=== PATIENT | female | born 1990 | race Two or more races ===

== ENCOUNTER 2016-11-08 18:30 | Outpatient (CLI) | payer MEDICAID ==
--- NOTE | 2016-11-08 19:10 | Non Stress Test Report ---
Non Stress Test Datetime Report Generated by CPN: 11/08/2016 19:10 DEMOGRAPHIC EGA NST: 36.2 INDICATION Indication for Study: Ordered by Provider Indication for Study (NST) Other: repeat from the office MONITORING Monitor Explained: Monitor Explained; Test Explained; Patient Verbalized Understanding Time on Monitor: 11/08/2016 18:48 Time off Monitor: 11/08/2016 19:08 NST Duration: 20 NST INTERVENTIONS NST Interventions: PO Hydration; Reposition Patient Physician Notified NST: A. Emmel, CNM BABY A: [id number] BABY A Movement : Present Contraction Frequency : none FHR Baseline : 145 Accelerations : 15X15 Decelerations : None Variability : Moderate 6-25bpm NST Review: Meets Criteria for Reactive NST NST Results: Reactive NST REPORT Report Trigger: Send Report
--- NOTE | 2016-11-08 21:12 | L&D Discharge Summary ---
OB Discharge Summary Datetime Report Generated by CPN: 11/08/2016 21:12 DISCHARGE DIAGNOSIS Diagnosis/Symptoms: Reassuring Surveillance - Annotate Details Diagnoses/Symptoms Other: IUP at 36.2, reactive NST Number of Babies in Womb: 1 Parity: 4 DIET/ACTIVITY/RESTRICTIONS Diet: Regular Activity: Normal Activity TEACHING/INSTRUCTIONS/REFERRALS Instructions Given To: patient and FOB Instructions Understood: Patient Verbalized Understanding; Support Person Verbalized Understanding Referrals: None Educational Materials- Other: kick counts DISCHARGE INFORMATION Discharged AMA: No Discharge Date/Time: 11/08/2016 19:11 Discharged To: Home Discharge Provider Name: FerdinandKatie DaphneMAHENDRA zuluaga Accompanied By: FOB Discharge Method: Ambulatory Condition: Stable FOLLOW UP INFORMATION Follow Up With: [facility] Follow Up On: As Scheduled Follow Up Phone Number: [facility] -
--- NOTE | 2016-11-08 22:50 | L&D Flow Sheet ---
LD Flowsheet Datetime Report Generated by CPN: 11/08/2016 22:45 Datetime: 11/08/2016 19:09 Communication Communication Comments: monitors removed for patient discharge (Radha Khanh, RN) Datetime: 11/08/2016 19:08 Communication Communication Comments: order received from A. Emmel, CNM to discharge patient once heart rate reactive (Radha Khanh, RN) Datetime: 11/08/2016 19:07 NBP Sys/[place]/Mean (mmHg): 96 (QS system process) : 61 (QS system process) : 75 (QS system process) Pulse: 93 (QS system process) LaborFlag: OB Triage (QS system process) Datetime: 11/08/2016 19:00 Uterine Activity Monitor Mode: External; Palpation (Radha Khanh, RN) Frequency (min): none (Radha Khanh, RN) Resting Tone (Palpate): Relaxed (Radha Khanh, RN) Assessment A Monitor Mode: External US (Radha Khanh, RN) FHR Baseline Rate : 145 (Radha Khanh, RN) FHR Baseline Changes: No Baseline Change (Radha Khanh, RN) Variability: Moderate 6-25 bpm (Radha Khanh, RN) Accelerations: 15X15 (Radha Khanh, RN) Decelerations: None (Radha Khanh, RN) Datetime: 11/08/2016 18:53 NBP Sys/[place]/Mean (mmHg): 99 (QS system process) : 59 (QS system process) : 74 (QS system process) Pulse: 106 (QS system process) LaborFlag: OB Triage (QS system process) Datetime: 11/08/2016 18:49 Patient Care Patient Position/Activity: Left Tilt; Low Fowlers (Radha Khanh, RN) Datetime: 11/08/2016 18:46 Communication Communication Comments: patient sent from office for repeat NST (Radha Khanh, RN) Datetime: 11/08/2016 16:45 Vital Signs Stage of : OB Triage (Radha Khanh, RN)
--- NOTE | 2016-11-08 22:50 | L&D Discharge Summary ---
OB Discharge Summary Datetime Report Generated by CPN: 11/08/2016 22:45 DISCHARGE DIAGNOSIS Diagnosis/Symptoms: Reassuring Surveillance - Annotate Details Diagnoses/Symptoms Other: IUP at 36.2, reactive NST Gestation: 36.2 Number of Babies in Womb: 1 Parity: 4 DIET/ACTIVITY/RESTRICTIONS Diet: Regular Activity: Normal Activity TEACHING/INSTRUCTIONS/REFERRALS Instructions Given To: patient and FOB Instructions Understood: Patient Verbalized Understanding; Support Person Verbalized Understanding Referrals: None Educational Materials- Other: kick counts DISCHARGE INFORMATION Discharged AMA: No Discharge Date/Time: 11/08/2016 19:11 Discharged To: Home Discharge Provider Name: Antony Glasgow CNM Accompanied By: FOB Discharge Method: Ambulatory Condition: Stable FOLLOW UP INFORMATION Follow Up With: [facility] Follow Up On: As Scheduled Follow Up Phone Number: [facility] -
--- NOTE | 2016-11-08 22:50 | Antepartum Discharge Summary ---
Antepartum DC Datetime Report Generated by CPN: 11/08/2016 22:45 DIET/ACTIVITY/RESTRICTIONS Diet: Regular (11/08/2016 19:03:Radha Cassidy RN) Activity: Normal Activity (11/08/2016 19:03:Radha Cassidy RN) TEACHING/INSTRUCTIONS/REFERRALS Instructions Given To: patient and FOB (11/08/2016 19:03:Radha Cassidy RN) Instructions Understood: Patient Verbalized Understanding; Support Person Verbalized Understanding (11/08/2016 19:03:Radha Cassidy RN) Referrals: None (11/08/2016 19:03:Radha Cassidy RN) Educational Materials- Other: kick counts (11/08/2016 19:03:Radha Cassidy RN) DISCHARGE INFORMATION Discharged AMA: No (11/08/2016 19:03:Radha Cassidy RN) Discharge Date/Time: 11/08/2016 19:11 (11/08/2016 19:03:Radha Cassidy RN) Discharged To: Home (11/08/2016 19:03:Radha Cassidy RN) Discharge Provider Name: Antony Glasgow CNM (11/08/2016 19:03:Radha Cassidy RN) Accompanied By: FOB (11/08/2016 19:03:Radha Cassidy RN) Discharge Method: Ambulatory (11/08/2016 19:03:Radha Cassidy RN) Condition: Stable (11/08/2016 19:03:Radha Cassidy RN) FOLLOW UP INFORMATION Follow Up With: [facility] (11/08/2016 19:03:Radha Cassidy RN) Follow Up On: As Scheduled (11/08/2016 19:03:Radha Cassidy RN) Follow Up Phone Number: [facility] - (11/08/2016 19:03:Radha Cassidy RN)
--- NOTE | 2016-11-08 22:50 | L&D General Admission ---
General Admit Datetime Report Generated by CPN: 11/08/2016 22:45 INFORMATION Patient Age: 26 (11/08/2016 18:31:QS system process) EDC: 12/04/2016 00:00 (11/08/2016 18:36:Sarah Bellavance, RNC) : 5 (11/08/2016 18:36:Sarah Bellavance, RNC) Para: 4 (11/08/2016 18:36:Sarah Bellavance, RNC) Term: 4 (11/08/2016 18:36:Sarah Bellavance, RNC) : 0 (11/08/2016 18:36:Sarah Bellavance, RNC) Spontaneous Abortions: 0 (11/08/2016 18:36:Sarah Bellavance, RNC) Induced Abortions: 0 (11/08/2016 18:36:Sarah Bellavance, RNC) Livin (11/08/2016 18:36:Sarah Bellavance, RNC) Cesareans: 0 (11/08/2016 18:36:Sarah Bellavance, RNC) VBACs: 0 (11/08/2016 18:36:Sarah Bellavance, RNC) Ectopic: 0 (11/08/2016 18:36:Sarah Bellavance, RNC) Multiple Births: 0 (11/08/2016 18:36:Sarah Bellavance, RNC) Baby, Number in Womb: 1 (11/08/2016 18:36:Sarah Bellavance, RNC) CARE Primary Ground Water Pump Installer: [facility] (11/08/2016 18:36:Sarah Bellavance, RNC) Height (in): 64 (11/08/2016 18:59:QS system process) ALLERGIES Medication Allergies: No Known Allergies (11/08/2016) (11/08/2016 18:59:QS system process) Medication Allergies: No Known Allergies (02/04/2011) (11/08/2016 18:31:QS system process) DEMOGRAPHICS Address: [address] [place] [address] [address], [address] [place] [address] (11/08/2016 18:31:QS system process) Zipcode: [address] (11/08/2016 18:31:QS system process) Home (11/08/2016 18:31:QS system process) Work (11/08/2016 18:31:QS system process) SSN: [id number] (11/08/2016 18:31:QS system process) Next of Kin Name: JESSICA PERALTA (11/08/2016 18:31:QS system process) Next of Kin (11/08/2016 18:31:QS system process) Next of Kin Relationship: OR (11/08/2016 18:31:QS system process) Date of : 1990 (11/08/2016 18:31:QS system process) Marital Status: Single (11/08/2016 18:31:QS system process) Sex: Female (11/08/2016 18:31:QS system process) Race: Other (11/08/2016 18:31:QS system process) Ethnicity: Non- or (11/08/2016 18:31:QS system process) Buddhism: None (11/08/2016 18:31:QS system process)
--- NOTE | 2016-11-09 04:50 | Antepartum Discharge Summary ---
Antepartum DC Datetime Report Generated by CPN: 11/09/2016 04:46 DIET/ACTIVITY/RESTRICTIONS Diet: Regular (11/08/2016 19:03:Radha Cassidy RN) Activity: Normal Activity (11/08/2016 19:03:Radha Cassidy RN) TEACHING/INSTRUCTIONS/REFERRALS Instructions Given To: patient and FOB (11/08/2016 19:03:Radha Cassidy RN) Instructions Understood: Patient Verbalized Understanding; Support Person Verbalized Understanding (11/08/2016 19:03:Radha Cassidy RN) Referrals: None (11/08/2016 19:03:Radha Cassidy RN) Educational Materials- Other: kick counts (11/08/2016 19:03:Radha Cassidy RN) DISCHARGE INFORMATION Discharged AMA: No (11/08/2016 19:03:Radha Cassidy RN) Discharge Date/Time: 11/08/2016 19:11 (11/08/2016 19:03:Radha Cassidy RN) Discharged To: Home (11/08/2016 19:03:Radha Cassidy RN) Discharge Provider Name: Antony Glasgow CNM (11/08/2016 19:03:Radha Cassidy RN) Accompanied By: FOB (11/08/2016 19:03:Radha Cassidy RN) Discharge Method: Ambulatory (11/08/2016 19:03:Radha Cassidy RN) Condition: Stable (11/08/2016 19:03:Radha Cassidy RN) FOLLOW UP INFORMATION Follow Up With: [facility] (11/08/2016 19:03:Radha Cassidy RN) Follow Up On: As Scheduled (11/08/2016 19:03:Radha Cassidy RN) Follow Up Phone Number: [facility] - (11/08/2016 19:03:Radha Cassidy RN)
--- NOTE | 2016-11-09 04:50 | L&D Discharge Summary ---
OB Discharge Summary Datetime Report Generated by CPN: 11/09/2016 04:46 DISCHARGE DIAGNOSIS Diagnosis/Symptoms: Reassuring Surveillance - Annotate Details Diagnoses/Symptoms Other: IUP at 36.2, reactive NST Gestation: 36.2 Number of Babies in Womb: 1 Parity: 4 DIET/ACTIVITY/RESTRICTIONS Diet: Regular Activity: Normal Activity TEACHING/INSTRUCTIONS/REFERRALS Instructions Given To: patient and FOB Instructions Understood: Patient Verbalized Understanding; Support Person Verbalized Understanding Referrals: None Educational Materials- Other: kick counts DISCHARGE INFORMATION Discharged AMA: No Discharge Date/Time: 11/08/2016 19:11 Discharged To: Home Discharge Provider Name: Antony Glasgow CNM Accompanied By: FOB Discharge Method: Ambulatory Condition: Stable FOLLOW UP INFORMATION Follow Up With: [facility] Follow Up On: As Scheduled Follow Up Phone Number: [facility] -
--- NOTE | 2016-11-09 04:50 | L&D General Admission ---
General Admit Datetime Report Generated by CPN: 11/09/2016 04:46 INFORMATION Patient Age: 26 (11/08/2016 18:31:QS system process) EDC: 12/04/2016 00:00 (11/08/2016 18:36:Sarah Bellavance, RNC) : 5 (11/08/2016 18:36:Sarah Bellavance, RNC) Para: 4 (11/08/2016 18:36:Sarah Bellavance, RNC) Term: 4 (11/08/2016 18:36:Sarah Bellavance, RNC) : 0 (11/08/2016 18:36:Sarah Bellavance, RNC) Spontaneous Abortions: 0 (11/08/2016 18:36:Sarah Bellavance, RNC) Induced Abortions: 0 (11/08/2016 18:36:Sarah Bellavance, RNC) Livin (11/08/2016 18:36:Sarah Bellavance, RNC) Cesareans: 0 (11/08/2016 18:36:Sarah Bellavance, RNC) VBACs: 0 (11/08/2016 18:36:Sarah Bellavance, RNC) Ectopic: 0 (11/08/2016 18:36:Sarah Bellavance, RNC) Multiple Births: 0 (11/08/2016 18:36:Sarah Bellavance, RNC) Baby, Number in Womb: 1 (11/08/2016 18:36:Sarah Bellavance, RNC) CARE Primary Traffic Engineering Director: [facility] (11/08/2016 18:36:Sarah Bellavance, RNC) Height (in): 64 (11/08/2016 18:59:QS system process) ALLERGIES Medication Allergies: No Known Allergies (11/08/2016) (11/08/2016 18:59:QS system process) Medication Allergies: No Known Allergies (02/04/2011) (11/08/2016 18:31:QS system process) DEMOGRAPHICS Address: [address] [place] [address] [address], [address] [place] [address] (11/08/2016 18:31:QS system process) Zipcode: [address] (11/08/2016 18:31:QS system process) Home (11/08/2016 18:31:QS system process) Work (11/08/2016 18:31:QS system process) SSN: [id number] (11/08/2016 18:31:QS system process) Next of Kin Name: JESSICA PERALTA (11/08/2016 18:31:QS system process) Next of Kin (11/08/2016 18:31:QS system process) Next of Kin Relationship: OR (11/08/2016 18:31:QS system process) Date of : 1990 (11/08/2016 18:31:QS system process) Marital Status: Single (11/08/2016 18:31:QS system process) Sex: Female (11/08/2016 18:31:QS system process) Race: Other (11/08/2016 18:31:QS system process) Ethnicity: Non- or (11/08/2016 18:31:QS system process) Cheondoism: None (11/08/2016 18:31:QS system process)
--- NOTE | 2016-11-09 04:50 | L&D Admission Assessment ---
LD ADM ASMT Datetime Report Generated by CPN: 11/09/2016 04:46 WEIGHT Weight (lb): 139 (11/08/2016 18:59:QS system process) Weight (kg): 63.2 (11/08/2016 18:59:QS system process) CONTRACTIONS Frequency (min): none (11/08/2016 19:00:Radha Cassidy RN) Resting Tone [place] Number Two: Relaxed (11/08/2016 19:00:Radha Cassidy RN) BABY A FHR Baseline Rate (bpm) Baby A: 145 (11/08/2016 19:00:Radha Cassidy RN) Variability Baby A: Moderate 6-25 bpm (11/08/2016 19:00:Radha Cassidy RN) Accelerations Baby A: 15X15 (11/08/2016 19:00:Radha Cassidy RN) Decelerations Baby A: None (11/08/2016 19:00:Radha Cassidy RN)
--- NOTE | 2016-11-09 10:50 | L&D Admission Assessment ---
LD ADM ASMT Datetime Report Generated by CPN: 11/09/2016 10:45 WEIGHT Weight (lb): 139 (11/08/2016 18:59:QS system process) Weight (kg): 63.2 (11/08/2016 18:59:QS system process) CONTRACTIONS Frequency (min): none (11/08/2016 19:00:Radha Cassidy RN) Resting Tone [place]: Relaxed (11/08/2016 19:00:Radha Cassidy RN) BABY A FHR Baseline Rate (bpm) Baby A: 145 (11/08/2016 19:00:Radha Cassidy RN) Variability Baby A: Moderate 6-25 bpm (11/08/2016 19:00:Radha Cassidy RN) Accelerations Baby A: 15X15 (11/08/2016 19:00:Radha Cassidy RN) Decelerations Baby A: None (11/08/2016 19:00:Radha Cassidy RN)
--- NOTE | 2016-11-09 10:50 | L&D Discharge Summary ---
OB Discharge Summary Datetime Report Generated by CPN: 11/09/2016 10:45 DISCHARGE DIAGNOSIS Diagnosis/Symptoms: Reassuring Surveillance - Annotate Details Diagnoses/Symptoms Other: IUP at 36.2, reactive NST Gestation: 36.2 Number of Babies in Womb: 1 Parity: 4 DIET/ACTIVITY/RESTRICTIONS Diet: Regular Activity: Normal Activity TEACHING/INSTRUCTIONS/REFERRALS Instructions Given To: patient and FOB Instructions Understood: Patient Verbalized Understanding; Support Person Verbalized Understanding Referrals: None Educational Materials- Other: kick counts DISCHARGE INFORMATION Discharged AMA: No Discharge Date/Time: 11/08/2016 19:11 Discharged To: Home Discharge Provider Name: Antony Glasgow CNM Accompanied By: FOB Discharge Method: Ambulatory Condition: Stable FOLLOW UP INFORMATION Follow Up With: [facility] Follow Up On: As Scheduled Follow Up Phone Number: [facility] -
--- NOTE | 2016-11-09 10:50 | L&D General Admission ---
General Admit Datetime Report Generated by CPN: 11/09/2016 10:45 INFORMATION Patient Age: 26 (11/08/2016 18:31:QS system process) EDC: 12/04/2016 00:00 (11/08/2016 18:36:Sarah Bellavance, RNC) : 5 (11/08/2016 18:36:Sarah Bellavance, RNC) Para: 4 (11/08/2016 18:36:Sarah Bellavance, RNC) Term: 4 (11/08/2016 18:36:Sarah Bellavance, RNC) : 0 (11/08/2016 18:36:Sarah Bellavance, RNC) Spontaneous Abortions: 0 (11/08/2016 18:36:Sarah Bellavance, RNC) Induced Abortions: 0 (11/08/2016 18:36:Sarah Bellavance, RNC) Livin (11/08/2016 18:36:Sarah Bellavance, RNC) Cesareans: 0 (11/08/2016 18:36:Sarah Bellavance, RNC) VBACs: 0 (11/08/2016 18:36:Sarah Bellavance, RNC) Ectopic: 0 (11/08/2016 18:36:Sarah Bellavance, RNC) Multiple Births: 0 (11/08/2016 18:36:Sarah Bellavance, RNC) Baby, Number in Womb: 1 (11/08/2016 18:36:Sarah Bellavance, RNC) CARE Primary Clinical Research Nurse Coordinator: [facility] (11/08/2016 18:36:Sarah Bellavance, RNC) Height (in): 64 (11/08/2016 18:59:QS system process) ALLERGIES Medication Allergies: No Known Allergies (11/08/2016) (11/08/2016 18:59:QS system process) Medication Allergies: No Known Allergies (02/04/2011) (11/08/2016 18:31:QS system process) DEMOGRAPHICS Address: [address] [place] [address] [address], [address] [place] [address] (11/08/2016 18:31:QS system process) Zipcode: [address] (11/08/2016 18:31:QS system process) Home (11/08/2016 18:31:QS system process) Work (11/08/2016 18:31:QS system process) SSN: [id number] (11/08/2016 18:31:QS system process) Next of Kin Name: JESSICA PERALTA (11/08/2016 18:31:QS system process) Next of Kin (11/08/2016 18:31:QS system process) Next of Kin Relationship: OR (11/08/2016 18:31:QS system process) Date of : 1990 (11/08/2016 18:31:QS system process) Marital Status: Single (11/08/2016 18:31:QS system process) Sex: Female (11/08/2016 18:31:QS system process) Race: Other (11/08/2016 18:31:QS system process) Ethnicity: Non- or (11/08/2016 18:31:QS system process) Restorationist: None (11/08/2016 18:31:QS system process)
--- NOTE | 2016-11-09 10:50 | Antepartum Discharge Summary ---
Antepartum DC Datetime Report Generated by CPN: 11/09/2016 10:45 DIET/ACTIVITY/RESTRICTIONS Diet: Regular (11/08/2016 19:03:Radha Cassidy RN) Activity: Normal Activity (11/08/2016 19:03:Radha Cassidy RN) TEACHING/INSTRUCTIONS/REFERRALS Instructions Given To: patient and FOB (11/08/2016 19:03:Radha Cassidy RN) Instructions Understood: Patient Verbalized Understanding; Support Person Verbalized Understanding (11/08/2016 19:03:Radha Cassidy RN) Referrals: None (11/08/2016 19:03:Radha Cassidy RN) Educational Materials- Other: kick counts (11/08/2016 19:03:Radha Cassidy RN) DISCHARGE INFORMATION Discharged AMA: No (11/08/2016 19:03:Radha Cassidy RN) Discharge Date/Time: 11/08/2016 19:11 (11/08/2016 19:03:Radha Cassidy RN) Discharged To: Home (11/08/2016 19:03:Radha Cassidy RN) Discharge Provider Name: Antony Glasgow CNM (11/08/2016 19:03:Radha Cassidy RN) Accompanied By: FOB (11/08/2016 19:03:Radha Cassidy RN) Discharge Method: Ambulatory (11/08/2016 19:03:Radha Cassidy RN) Condition: Stable (11/08/2016 19:03:Radha Cassidy RN) FOLLOW UP INFORMATION Follow Up With: [facility] (11/08/2016 19:03:Radha Cassidy RN) Follow Up On: As Scheduled (11/08/2016 19:03:Radha Cassidy RN) Follow Up Phone Number: [facility] - (11/08/2016 19:03:Radha Cassidy RN)
== END 2016-11-08 19:11 | disposition home or self-care (01) ==
LOC: LC 18:30
PROVIDERS: ATTEND Obstetrics & Gynecology
PROC: 4A1HXCZ Monitoring of Products of Conception, Cardiac Rate, External Approach (ICD-10-PCS; principal; 2016-11-08)
DX: Z34.93 Encounter for supervision of normal pregnancy, unspecified, third trimester (principal); Z36 Encounter for antenatal screening of mother; Z3A.36 36 weeks gestation of pregnancy
CPT/HCPCS: 59025

== ENCOUNTER 2016-12-02 05:28 | Outpatient (CLI) | payer MEDICAID ==
[2016-12-02 05:58] LABS: APPEARANCE,URINE CLEAR; BILIRUBIN,URINE NEGATIVE (NEGATIVE); GLUCOSE, URINE NEGATIVE (NEGATIVE); KETONES,URINE NEGATIVE (NEGATIVE); LEUKOCYTE ESTERASE,URINE NEGATIVE (NEGATIVE); NITRITE,URINE NEGATIVE (NEGATIVE); PROTEIN,URINE NEGATIVE (NEGATIVE); URINE SPECIFIC GRAVITY 1.005; UROBILINOGEN,URINE NEGATIVE mg/dL (<2.0)
[2016-12-02 06:23] LABS: URINE BARBITURATES SCREEN NEGATIVE; URINE METHADONE SCREEN NEGATIVE; URINE OPIATES LOW NEGATIVE; URINE PHENCYCLIDINE SCREEN NEGATIVE
[2016-12-02] MEDS ORDERED: ZOLPIDEM TARTRATE 5 MG TABLET ONE (06:49)
--- NOTE | 2016-12-02 06:51 | Non Stress Test Report ---
Non Stress Test Datetime Report Generated by CPN: 12/02/2016 06:51 DEMOGRAPHIC EGA NST: 39.5 INDICATION Indication for Study: Other Indication for Study (NST) Other: LC URINE RESULTS Urine Protein, NST: Negative Urine Ketones - NST: Negative Urine Glucose - NST: Negative Urine Blood - NST: Negative MONITORING Monitor Explained: Monitor Explained; Test Explained; Patient Verbalized Understanding Time on Monitor: 12/02/2016 05:46 Time off Monitor: 12/02/2016 06:44 NST Duration: 58 NST INTERVENTIONS NST Interventions: PO Hydration Physician Notified NST: Dr. Jorgensen BABY A: [id number] Movement : Present Contraction Frequency : 1.5-5 FHR Baseline : 125 Accelerations : 15X15 Decelerations : None Variability : Moderate 6-25bpm NST Review: Meets Criteria for Reactive NST NST Review and Verified By : Melvina Ram RN NST Results: Reactive NST REPORT Report Trigger: Send Report
[2016-12-02] MEDS ORDERED: ZOLPIDEM TARTRATE 5 MG TABLET PO ONE (07:00)
== END 2016-12-02 06:56 | disposition home or self-care (01) ==
LOC: LC 05:28
PROVIDERS: ATTEND Specialist
DX: O47.1 False labor at or after 37 completed weeks of gestation (principal); Z3A.39 39 weeks gestation of pregnancy
CPT/HCPCS: 59025; 81005; 80307; J3490

== ENCOUNTER 2016-12-07 07:35 | Inpatient (IN) | payer MEDICAID ==
[2016-12-07] MEDS ORDERED: RINGERS SOLUTION,LACTATED 1,000 ML IV PRN (07:42)
[2016-12-07] MEDS ORDERED: OXYTOCIN/NORMAL SALINE 1,000 ML IV PRN ×2 (07:42→16:26)
[2016-12-07] MEDS ORDERED: RINGERS SOLUTION,LACTATED 300 ML IV ONE (07:42)
[2016-12-07 08:20] LABS: ABSOLUTE EOSINOPHILS # (AUTO) 0.1 10^3/uL (0.0-0.6); ABSOLUTE LYMPHOCYTES (AUTO) 3.3 10^3/uL (0.5-4.7); ABSOLUTE MONOCYTES (AUTO) 0.7 10^3/uL (0.1-1.4); ABSOLUTE NEUT (AUTO) 8.2 10^3/uL (1.7-8.2); BASOPHILS % (AUTO) 0.2 % (0-2); EOSINOPHILS % (AUTO) 0.9 % (0-6); HEMOGLOBIN 10.2 g/dL (12.0-15.5); HGB HCT DIFFERENCE -0.4; LYMPHOCYTES % (AUTO) 26.8 % (13-45); MEAN CORPUSCULAR HGB CONC 32.8 g/dL (32.0-36.0); MEAN CORPUSCULAR VOLUME 82 fl (80-97); MONOCYTES % (AUTO) 5.7 % (3-13); RED BLOOD COUNT 3.77 10^6/uL (3.72-5.28); RED CELL DISTRIBUTION WIDTH 14.3 % (11.5-14.0); SEGMENTED NEUTROPHILS % (AUTO) 66.4 % (42-78); WHITE BLOOD COUNT 12.3 10^3/uL (4.0-10.5)
[2016-12-07] MEDS ORDERED: OXYTOCIN/NORMAL SALINE 20 UNIT/1,000 ML RTUINJ ONE (08:30)
[2016-12-07 09:04] LABS: APPEARANCE,URINE SLIGHTLY-CLOUDY; BILIRUBIN,URINE NEGATIVE (NEGATIVE); GLUCOSE, URINE NEGATIVE (NEGATIVE); KETONES,URINE NEGATIVE (NEGATIVE); LEUKOCYTE ESTERASE,URINE NEGATIVE (NEGATIVE); NITRITE,URINE NEGATIVE (NEGATIVE); PROTEIN,URINE NEGATIVE (NEGATIVE); URINE SPECIFIC GRAVITY 1.019; UROBILINOGEN,URINE NEGATIVE mg/dL (<2.0)
[2016-12-07 09:26] LABS: URINE BARBITURATES SCREEN NEGATIVE; URINE METHADONE SCREEN NEGATIVE; URINE OPIATES LOW NEGATIVE; URINE PHENCYCLIDINE SCREEN NEGATIVE
[2016-12-07] MEDS ORDERED: EPHEDRINE SULFATE INJ 50 MG/1 ML AMPULE ONE (12:35)
[2016-12-07] MEDS ORDERED: FENTANYL/BUPIVACAINE/NS/PF 200 MCG/100 ML RTUINJ EPI ONE (12:36)
[2016-12-07] MEDS ORDERED: BUPIVACAINE HCL 0.25 % INJ/PF (2.5 MG/1 ML) 30 ML VIAL ONE (12:36)
[2016-12-07] MEDS ORDERED: MISOPROSTOL 0.2 MG TABLET ONE (14:42)
[2016-12-07] MEDS ORDERED: LIDOCAINE 1% INJ-PF (10 MG/ML) 30 ML SDV ONE (14:43)
[2016-12-07] MEDS ORDERED: METHYLERGONOVINE MALEATE INJ/PF 0.2 MG/1 ML AMPULE ONE (14:43)
[2016-12-07] MEDS ORDERED: OXYTOCIN 10 UNIT/ML VIAL ONE (14:43)
--- NOTE | 2016-12-07 14:43 | L&D Progress Notes ---
PROGRESS NOTES Datetime Report Generated by CPN: 12/07/2016 14:43 PROGRESS NOTE Impression: Normal Progression of Labor Plan: Continue Present Management; Induction Informed Consent Obtained: Vaginal Delivery Informed Consent Obtained: Vaginal Delivery; Induction of Labor; Risks, Benefits and Alternatives Discussed Vital Signs : Reviewed Comment: s/p epidural placement ctxs q3-5 min FHts 120s average variability pitocin at 20mu/ min anticipate FETUS A FHR - Baseline: 130 Monitoring: External US Variability: Moderate 6-25bpm Decelerations: None : 40.3 Presentation: Vertex SIGNATURE SIGNATURE: [id number] SIGNATURE: [id number] SIGNATURE: [id number] Assignment: Keven Greenfield DO Signature: with User ID: [email or web address] : with User ID: [email or web address]
[2016-12-07] MEDS ORDERED: BENZOCAINE/MENTHOL AEROSOL SPRAY 56 ML TOP PRN (16:26)
[2016-12-07] MEDS ORDERED: ZOLPIDEM TARTRATE 5 MG TABLET PO PRN (16:26)
[2016-12-07] MEDS ORDERED: DIPH/PERTUSS(ACELL)/TETANUS VAC/PF 0.5 ML SYR (>=10YO) IM PRN (16:26)
[2016-12-07] MEDS ORDERED: DIBUCAINE 1% OINTMENT 28 GM TP PRN (16:26)
[2016-12-07] MEDS ORDERED: MEASLES,MUMPS&RUBELLA VACC/PF 0.5 ML VIAL SUBCUT PRN (16:26)
--- NOTE | 2016-12-07 17:55 | Admission Physical ---
Datetime Report Generated by CPN: 12/07/2016 17:55 CURRENT ADMISSION Chief Complaint: Scheduled Induction of Labor Admit Plan: Admit to Unit; Initiate Labor Protocol; Initiate Labor Induction Protocol ALLERGIES Medication Allergies: No Medication Allergies: No Known Allergies (12/02/2016) Medication Allergies: No Known Allergies (11/08/2016) Medication Allergies: No Known Allergies (02/04/2011) Latex: No Latex Allergies OBSTETRICAL HISTORY EDC: 12/04/2016 00:00 : 6 Para: 4 Term: 3 : 1 SAB: 0 IAB: 1 Ectopic: 0 Livin Cesareans: 0 VBACs: 0 Multiple Births: 0 Gestational Diabetes: No Rh Sensitization: No Incompetent Cervix: No CLAUDIA: No Infertility: No ART Treatment: No Uterine Anomaly: No IUGR: Yes Hx Previous C/S: No Macrosomia: No Hx Loss/Stillborn: No PIH: No Hx : No Placenta Previa/Abruption: No Depression/PP Depression: No PTL/PROM: Yes Post Hemorrhage: No Current Procedures: None; Colposcopy Obstetrical History Comments: G1: 12/2009 39 weeks. babygirl G2: 01/2011: 39.6 babyboy G3: 2010: EAB G4: 01/2014: 42 weeks babyboy G5: 11/2015: 39 weeks baby girl (IUGR) G6: current (colpo 06/2016, will need repeat PP) SEE RECORDS Alcohol: No Marijuana : No Cocaine: No Other Illicit Drugs: No Cigarettes: Current Everyday Smoker. 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 Surgery: No Heart Disease: No Hosp/Surgery: No Autoimmune Disorder: No Anesthetic Complications: No Kidney Disease: No Abnormal Pap Smear: Yes Neuro/Epilepsy: No Psychiatric Disorders: No Other Medical Diseases: No Hepatitis/Liver Disease: No Significant Family History: No Varicosities/Phlebitis: No Trauma/Violence : No Thyroid Dysfunction: No Medical History Comments: abnormal pap- ASCUS HR HPV, colpo 07/24/2016, repeat pap PP INFECTIOUS HISTORY Gonorrhea: No Genital Herpes: No Chlamydia: Yes Tuberculosis: No Syphilis: No Hepatitis: No HIV/AIDS Exposure: No Rash or Viral Illness: No HPV: Yes Infectious History Comments: Chlam 6 years ago- treated per pt HPV PHYSICAL EXAM General: Normal HEENT: Normal Neurologic: Normal Thyroid: Normal Heart: Normal Lungs: Normal Breast: Normal Back: Normal Abdomen: Normal Genitourinary Exam: Normal Extremities: Normal DTRs: Normal Pelvic Type: Adequate Vital Signs: Reviewed FETUS A EGA: 40.3 Monitoring: External US FHR- Baseline: 120 Variability: Moderate 6-25bpm Decelerations: None FHR Category: Category I Presentation: Vertex Admit Comment: 26 yo presents for iol secondary to poor interval growth EDC 12/04/16 EGA 40.3 history of IUGR with #4 abnormal pap with colposcopy follow up desires BTL smoker abdomen nontender FHTs 120s average variability uterine irritability EFW 5lbs cervix per RN /-2 start pitocin per protocol and recheck in one hour for possible AROM pain management prn anticipate poc reviewed with pt and spouse PLANS FOR LABOR AND DELIVERY Labor and Delivery: None Pain Management: Medications; Epidural Feeding Preference: Formula Benefit of Breast Feed Discussed: Yes Circumcision: N/A INFORMED CONSENT Informed Consent Obtained: Vaginal Delivery Informed Consent Obtained: Vaginal Delivery; Induction of Labor; Risks, Benefits and Alternatives Discussed Assignment: Keven Greenfield DO Signature: with User ID: [email or web address] : with User ID: [email or web address]
[2016-12-07] MEDS: FERROUS SULFATE 325 MG TABLET PO SCH (18:55)
[2016-12-07] MEDS: DOCUSATE SODIUM 100 MG CAPSULE PO SCH (18:55)
[2016-12-07] MEDS: IBUPROFEN 800 MG TABLET PO SCH (21:16)
[2016-12-08] MEDS ORDERED: ACETAMINOPHEN WITH CODEINE #3 TABLET PO PRN (00:56)
[2016-12-08] MEDS: ACETAMINOPHEN WITH CODEINE #3 TABLET PO PRN ×2 (01:01→09:11)
[2016-12-08] MEDS: IBUPROFEN 800 MG TABLET PO SCH ×3 (05:22→21:07)
[2016-12-08 07:56] LABS: HEMATOCRIT 28.2 % (36.0-47.0); HEMOGLOBIN 9.3 g/dL (12.0-15.5); HGB HCT DIFFERENCE -0.3; MEAN CORPUSCULAR HEMOGLOBIN 26.7 pg (27.0-33.4); MEAN CORPUSCULAR HGB CONC 32.9 g/dL (32.0-36.0); MEAN CORPUSCULAR VOLUME 81 fl (80-97); RED BLOOD COUNT 3.47 10^6/uL (3.72-5.28); RED CELL DISTRIBUTION WIDTH 14.2 % (11.5-14.0); WHITE BLOOD COUNT 13.3 10^3/uL (4.0-10.5)
[2016-12-08] MEDS: PRENATAL VITAMIN W-O CA NO5/FE FUMARATE/FA CAPSULE PO SCH (09:11)
[2016-12-08] MEDS: FERROUS SULFATE 325 MG TABLET PO SCH ×2 (09:11→17:28)
[2016-12-08] MEDS: DOCUSATE SODIUM 100 MG CAPSULE PO SCH ×2 (09:11→17:28)
[2016-12-08] MEDS: SENNOSIDES/DOCUSATE 8.6-50 MG 1 EACH TABLET PO SCH (09:11)
--- NOTE | 2016-12-08 10:20 | PDOC PROGRESS REPORT ---
Subjective-OB Subjective: Post Delivery Day: 1 26 year old. Denies any needs at this time, states lochia is stable, pain well controlled, voiding without difficulty, tolerating diet. Physical Exam (OB) Vital Signs: Temp Pulse Resp BP Pulse Ox 97.7 F 60 17 115/80 100 12/08/16 10:03 12/08/16 10:03 12/08/16 10:03 12/08/16 08:49 12/08/16 10:03 Intake & Output 12/07/16 12/08/16 12/09/16 06:59 06:59 06:59 Weight 63.1 kg - PIH/Pre-Eclampsia Clonus: Negative - Lochia Lochia Amount: Scant < 10 ml Lochia Color: Rubra/Red - Abdomen Description: Tender, Soft, Flat Hernia Present: No Fundal Description: Firm, Midline Fundal Height: u/u - u/2 Objective-Diagnostic Laboratory: 12/08/16 07:34 12/08/16 07:34 WBC 13.3 H RBC 3.47 L Hgb 9.3 L Hct 28.2 L MCV 81 MCH 26.7 L MCHC 32.9 RDW 14.2 H Plt Count 178 Assessment and Plan(PN) - Assessment and Plan (1) Vaginal delivery Is this a current diagnosis for this admission?: YesPlan: routine pp care (2) Acute blood loss anemia Is this a current diagnosis for this admission?: YesPlan: ferrous sulfate increase dietary iron - Time Spent with Patient Time with patient: Less than 15 minutes Critical Time spent with patient: Less than 15 minutes Medications reviewed and adjusted accordingly: Yes - Disposition Anticipated Discharge: Home Within: within 24 hours
[2016-12-09] MEDS: IBUPROFEN 800 MG TABLET PO SCH (06:15)
[2016-12-09 08:28] VITALS: BP 117/70
[2016-12-09] MEDS: FERROUS SULFATE 325 MG TABLET PO SCH (09:16)
[2016-12-09] MEDS: SENNOSIDES/DOCUSATE 8.6-50 MG 1 EACH TABLET PO SCH (09:16)
[2016-12-09] MEDS: DOCUSATE SODIUM 100 MG CAPSULE PO SCH (09:16)
[2016-12-09] MEDS: PRENATAL VITAMIN W-O CA NO5/FE FUMARATE/FA CAPSULE PO SCH (09:17)
--- NOTE | 2016-12-09 09:45 | PDOC DISCHARGE SUMMARY ---
Final Diagnosis Discharge Date: 12/09/16 - Final Diagnosis (1) Vaginal delivery Is this a current diagnosis for this admission?: Yes (2) Acute blood loss anemia Is this a current diagnosis for this admission?: Yes Discharge Data - Discharge Medication Home Medications: Docusate Sodium [Colace 100 mg Capsule] 100 mg PO BID #60 capsule 12/09/16 Ferrous Sulfate [Feosol 325 mg Tablet] 325 mg PO BID #60 tablet 12/09/16 Ibuprofen [Motrin 800 mg Tablet] 800 mg PO Q8 #60 tablet 12/09/16 Gestational Age: 40.6 Reason(s) for Admission: Induction of Labor Procedures: NST Intrapartum Procedure(s): Spontaneous Vaginal Delivery - Data Baby 1 Female at 1 minute: 8 at 5 minutes: 9 Weight: 2.807 kg Home with Mother: Yes Complications: No - Diagnosis Test Laboratory: Temp Pulse Resp BP Pulse Ox 98.1 F 71 17 117/70 99 12/09/16 08:38 12/09/16 08:38 12/09/16 08:38 12/09/16 07:30 12/09/16 08:38 12/07/16 12/07/16 12/08/16 07:56 08:00 07:34 RBC 3.77 3.47 L Hgb 10.2 L 9.3 L Hct 31.0 L 28.2 L Urine Opiates Screen NEGATIVE - Discharge information/Instructions Discharge Activity: Activity As Tolerated, No Driving, No Lifting Over 10 Pounds , Pelvic Rest, No tub bath Discharge Diet: Regular Disposition: HOME, SELF-CARE Follow up with: [facility] in: 4, Weeks
--- NOTE | 2016-12-11 18:11 | Delivery Summary ---
Del Sum A-C Datetime Report Generated by CPN: 12/11/2016 18:11 DELIVERY PERSONNEL DELIVERY PERSONNEL: [id number] Delivery Doctor:: Jae Glasgow CNM Nurse Reclamation Kettle Tender Certified:: Jae Glasgow CNM Labor and Delivery Nurse:: Ayse Hassan RNpesticide applicator Nurse:: IGNACIO Boyle Nursery Nurse:: MONSE Ospina/KAYLIN: Kaila Verduzco CNA II MATERNAL INFORMATION Delivery Anesthesia: Epidural Medications After Delivery: Pitocin Bolus-Please Comment Meds After Delivery Comment: Pitocin 20 units in 1000 ml nss open for bolus Estimated Blood Loss (ml): 250 Maternal Complications: None Provider Comments: delivery of viable female DASH bulb suctioned on perineum tactile stimulation elicits spont cry cord clamped cut by FOB cord blood obtained nursery at bedside EBL 300 cc placenta intact uterus explored no lacerations pt bonding well with LABOR SUMMARY EDC: 12/04/2016 00:00 No. Babies in Womb: 1 Attempted: No Labor Anesthesia: Epidural LABOR INFORMATION Reason for Induction: Other Reason for Induction- Other: Growth lag Onset of Labor: 12/07/2016 11:46 Complete Dilatation: 12/07/2016 15:44 Oxytocin: Induction Group B Beta Strep: Negative Steroids Given: None Reason Steroids Not Administered: Not Applicable MEMBRANES Membranes Rupture Method: Artificial Rupture of Membranes: 12/07/2016 11:46 Length of Rupture (hr): 4.12 Amniotic Fluid Color: Clear Amniotic Fluid Amount: Moderate Amniotic Fluid Odor: Normal STAGES OF LABOR Stage 1 hr: 3 Stage 1 min: 58 Stage 2 hr: 0 Stage 2 min: 9 Stage 3 hr: 0 Stage 3 min: 4 Total Time in Labor hr: 4 Total Time in Labor min: 11 VAGINAL DELIVERY Episiotomy: None Laceration Extension: N/A Laceration Type: None Sponge Count Correct: N/A Sharps Count Correct: N/A CSECTION DELIVERY Primary Indication: N/A Secondary Indication: N/A CSection Incidence: N/A Labor: N/A Elective: N/A CSection Incision: N/A BABY A INFORMATION Infant Delivery Date/Time: 12/07/2016 15:53 Method of Delivery: Vaginal Born in Route : No : N/A Forceps: N/A Vacuum Extraction: N/A Shoulder Dystocia : No PRESENTATION/POSITION BABY A Presentation: Cephalic Cephalic Presentation: Vertex Vertex Position: Left Occipital Anterior Breech Presentation: N/A PLACENTA INFORMATION BABY A Placenta Delivery Time : 12/07/2016 15:57 Placenta Method of Delivery: Spontaneous Placenta Status: Delivered SCORES BABY A Heart Rate 1 min: >100 bpm Resp Effort 1 min: Good Cry Reflex Irritability 1 min: Cough or Sneeze or Pulls Away Muscle Tone 1 min: Active Motion Color 1 min: Body [place], Extremities Blue Resuscitation Effort 1 min: Tactile Stimulation SCORE 1 MIN: 9 Heart Rate 5 min: >100 bpm Resp Effort 5 min: Good Cry Reflex Irritability 5 min: Cough or Sneeze or Pulls Away Muscle Tone 5 min: Active Motion Color 5 min: Body [place], Extremities Blue Resuscitation Effort 5 min: N/A SCORE 5 MIN: 9 Resuscitation Effort 10 min: N/A INFANT INFORMATION BABY A Gestational Age at Delivery: 40.3 Gestational Status: Full Term- 39- 40.6 Weeks Infant Outcome : Liveborn Condition : Stable Sex: Female IDENTIFICATION BABY A Infant Verification Date/Time: 12/07/2016 16:01 ID Band Number: [id number] Mother's Name Verified: Yes Infant RN Verifying Infant: MKatie Cassidy, RN, A. Knott, RN WEIGHT/LENGTH BABY A Birthweight (gm): 2810 Infant Weight (lb): 6 Infant Weight (oz): 3 Length (in): 18.00 Length (cm): 45.72 CORD INFORMATION BABY A No. Cord Vessels: 3 Nuchal Cord : N/A Cord Blood Taken: Yes-For Storage (Mom's Blood type +) Suction: None ASSESSMENT BABY A Infant Complications: None Physical Findings at Delivery: Within Normal Limits Respirations: Appears Normal Skin to Skin: Yes Skin to Skin Time (min): 45 Operations Administrator/ALS Called : No Care By: A Delmore RNC Transferred To: Remains with Mother BABY B INFORMATION : N/A SIGNATURES Assignment: Keven Greenfield DO Signature: with User ID: [email or web address] : with User ID: [email or web address]
== END 2016-12-09 10:26 | disposition home or self-care (01) | DRG 775 ==
LOC: LR 07:35 → 2S 17:52
PROVIDERS: ADMIT Obstetrics & Gynecology; ATTEND Obstetrics & Gynecology
PROC: 10E0XZZ Delivery of Products of Conception, External Approach (ICD-10-PCS; principal; 2016-12-07)
PROC: 10907ZC Drainage of Amniotic Fluid, Therapeutic from Products of Conception, Via Natural or Artificial Opening (ICD-10-PCS; 2016-12-07)
PROC: 4A1HXCZ Monitoring of Products of Conception, Cardiac Rate, External Approach (ICD-10-PCS; 2016-12-07)
PROC: 3E033VJ Introduction of Other Hormone into Peripheral Vein, Percutaneous Approach (ICD-10-PCS; 2016-12-07)
DX: O36.5930 Maternal care for other known or suspected poor fetal growth, third trimester, not applicable or unspecified (principal); O99.334 Smoking (tobacco) complicating childbirth; F17.210 Nicotine dependence, cigarettes, uncomplicated; Z37.0 Single live birth; Z3A.40 40 weeks gestation of pregnancy
CPT/HCPCS: 36415; 80307; 81005; 85025; 85027; 86592; 86850; 86900; 86901; 94760; J2210; J2590; J3490

== ENCOUNTER 2017-04-16 19:09 | Emergency (ER) | payer MEDICAID ==
[2017-04-16] MEDS ORDERED: CEFTRIAXONE 1 GM/D5W RTU 1 GM/50 ML RTUPB IV ONE (20:12)
[2017-04-16] MEDS ORDERED: IBUPROFEN 600 MG TABLET PO ONE (20:12)
--- NOTE | 2017-04-16 20:28 | ER Document Report ---
ED General - General Chief Complaint: Fever Stated Complaint: BODY ACHES Time Seen by Provider: 04/16/17 20:12 Mode of Arrival: Ambulatory Information source: Patient Notes: 27 yr old female presents with complaints of burning on urination, right flank pain, body aches. pt denies any nausea or vomiting, admits to body aches. TRAVEL OUTSIDE OF THE [place] IN LAST 30 DAYS: No - HPI Onset: Other Onset/Duration: Persistent Quality of pain: Achy Severity: Mild Pain Level: 1 Associated symptoms: Body/muscle aches, Fever Exacerbated by: Denies Relieved by: Denies Similar symptoms previously: No Recently seen / treated by doctor: No - Related Data Allergies/Adverse Reactions: No Known Allergies Allergy (Verified 12/02/16 06:24) Past Medical History - Social History Smoking Status: Never Smoker Cigarette use (# per day): No Chew tobacco use (# tins/day): No Smoking Education Provided: No Family History: Reviewed & Not Pertinent Patient has suicidal ideation: No Patient has homicidal ideation: No Renal/ Medical History: Denies: Hx Peritoneal Dialysis Review of Systems - Review of Systems Notes: REVIEW OF SYSTEMS: CONSTITUTIONAL : admits to fevers EENT: Denies eye, ear, throat, or mouth pain or symptoms. Denies nasal or sinus congestion or discharge. Denies throat, tongue, or mouth swelling or difficulty swallowing. CARDIOVASCULAR: Denies chest pain. Denies palpitations or racing or irregular heart beat. Denies ankle edema. RESPIRATORY: Denies cough, cold, or chest congestion. Denies shortness of breath, difficulty breathing, or wheezing. GASTROINTESTINAL: Denies abdominal pain or distention. Denies nausea, vomiting , or diarrhea. Denies blood in vomitus, stools, or per rectum. Denies black, tarry stools. Denies constipation. GENITOURINARY: admits to burning on urination FEMALE GENITOURINARY: Denies vaginal bleeding, heavy or abnormal periods, irregular periods. Denies vaginal discharge or odor. MUSCULOSKELETAL: admits to body aches SKIN: Denies rash, lesions or sores. HEMATOLOGIC : Denies easy bruising or bleeding. LYMPHATIC: Denies swollen, enlarged glands. NEUROLOGICAL: Denies confusion or altered mental status. Denies passing out or loss of consciousness. Denies dizziness or lightheadedness. Denies headache. Denies weakness or paralysis or loss of use of either side. Denies problems with gait or speech. Denies sensory loss, numbness, or tingling. Denies seizures. PSYCHIATRIC: Denies anxiety or stress. Denies depression, suicidal ideation, or homicidal ideation. ALL OTHER SYSTEMS REVIEWED AND NEGATIVE. PHYSICAL EXAMINATION: GENERAL: febrile HEAD: Atraumatic, normocephalic. EYES: Pupils equal round and reactive to light, extraocular movements intact, conjunctiva are normal. ENT: Nares patent, oropharynx clear without exudates. Moist mucous membranes. NECK: Normal range of motion, supple without lymphadenopathy LUNGS: Breath sounds clear to auscultation bilaterally and equal. No wheezes rales or rhonchi. HEART: tachycardic ABDOMEN: Soft, right flank pain cva Female : deferred Musculoskeletal: Normal range of motion, no pitting or edema. No cyanosis. NEUROLOGICAL: Cranial nerves grossly intact. Normal speech, normal gait. Normal sensory, motor exams PSYCH: Normal mood, normal affect. SKIN: hot to touch Dictation was performed using [employer] voice recognition software Physical Exam - Vital signs Vitals: Temp Pulse Resp BP Pulse Ox 102.9 F H 117 H 19 105/68 99 04/16/17 19:43 04/16/17 19:43 04/16/17 19:43 04/16/17 19:43 04/16/17 19:43 Course - Re-evaluation Re-evalutation: 04/16/17 20:30 pt has probably pyelonephritis 04/16/17 21:06 Patient's lab work is consistent with, patient started on antibiotics IV and will be discharged home with oral antibiotics she is otherwise well-appearing in no distress. She was noted to be tachycardic on arrival and febrile. Repeat vitals pending otherwise she actually looks better than her vital signs appear Very strict return precautions have been provided to the patient After performing a Medical Screening Examination, I estimate there is LOW risk for ACUTE APPENDICITIS, BOWEL OBSTRUCTION, ACUTE CHOLECYSTITIS, PERFORATED DIVERTICULITIS, INCARCERATED HERNIA, PANCREATITIS, PELVIC INFLAMMATORY DISEASE, PERFORATED ULCER, ECTOPIC , or TUBO-OVARIAN ABSCESS, thus I consider the discharge disposition reasonable. Also, there is no evidence or peritonitis , sepsis, or toxicity. I have reevaluated this patient multiple times and no significant life threatening changes are noted. The patient and I have discussed the diagnosis and risks, and we agree with discharging home with close follow-up with the understanding that symptoms and presentations can change. We also discussed returning to the Emergency Department immediately if new or worsening symptoms occur. We have discussed the symptoms which are most concerning (e.g., bloody stool, fever, changing or worsening pain, vomiting) that necessitate immediate return. - Vital Signs Vital signs: Temp Pulse Resp BP Pulse Ox 102.9 F H 117 H 19 105/68 99 04/16/17 19:43 04/16/17 19:43 04/16/17 19:43 04/16/17 19:43 04/16/17 19:43 - Laboratory Result Diagrams: 04/16/17 20:25 04/16/17 20:25 Laboratory results interpreted by me: 04/16/17 04/16/17 04/16/17 20:25 20:25 20:25 WBC 10.7 H Seg Neutrophils % 84.3 H Lymphocytes % 7.9 L Absolute Neutrophils 9.0 H Calcium 10.3 H Total Bilirubin 2.1 H Urine Protein 100 H Urine Ketones 20 H Urine Blood MODERATE H Urine Nitrite POSITIVE H Ur Leukocyte Esterase SMALL H Discharge - Discharge Clinical Impression: Tachycardia, Pyelonephritis Fever Qualifiers: Fever type: unspecified Qualified Code(s): R50.9 - Fever, unspecified Condition: Stable Disposition: HOME, SELF-CARE Instructions: Pyelonephritis ([facility]), Fever ([facility]) Additional Instructions: Follow up with your physician tomorrow for further care or return to the ED IMMEDIATELY if symptoms worsen or new concerns occur. If you cannot afford to follow up with your primary care physician a list of low cost clinics have been provided at the end of your discharge papers as well. Prescriptions: Ciprofloxacin HCl [Cipro 500 mg Tablet] 500 mg PO BID #20 tablet Hydrocodone/Acetaminophen [[place] 5-325 mg Tablet] 1 tab PO Q6 #10 tablet Promethazine HCl [Phenergan 25 mg Tablet] 1 - 2 tab PO Q6H PRN #15 tablet PRN Reason: Forms: Return to Work
[2017-04-16 20:39] LABS: ABSOLUTE LYMPHOCYTES (AUTO) 0.8 10^3/uL (0.5-4.7); ABSOLUTE MONOCYTES (AUTO) 0.8 10^3/uL (0.1-1.4); BASOPHILS % (AUTO) 0.2 % (0-2); HEMATOCRIT 38.7 % (36.0-47.0); HEMOGLOBIN 13.4 g/dL (12.0-15.5); HGB HCT DIFFERENCE 1.5; LYMPHOCYTES % (AUTO) 7.9 % (13-45); MEAN CORPUSCULAR HEMOGLOBIN 29.2 pg (27.0-33.4); MEAN CORPUSCULAR HGB CONC 34.7 g/dL (32.0-36.0); MEAN CORPUSCULAR VOLUME 84 fl (80-97); MONOCYTES % (AUTO) 7.6 % (3-13); SEGMENTED NEUTROPHILS % (AUTO) 84.3 % (42-78); WHITE BLOOD COUNT 10.7 10^3/uL (4.0-10.5)
[2017-04-16 20:48] LABS: APPEARANCE,URINE SLIGHTLY-CLOUDY; BILIRUBIN,URINE NEGATIVE (NEGATIVE); GLUCOSE, URINE NEGATIVE (NEGATIVE); KETONES,URINE 20 mg/dL (NEGATIVE); LEUKOCYTE ESTERASE,URINE SMALL (NEGATIVE); NITRITE,URINE POSITIVE (NEGATIVE); PROTEIN,URINE 100 mg/dL (NEGATIVE); URINE SPECIFIC GRAVITY 1.026; UROBILINOGEN,URINE NEGATIVE mg/dL (<2.0)
[2017-04-16 20:58] LABS: ALANINE AMINOTRANSFERASE 25 U/L (9-52); ALBUMIN 4.9 g/dL (3.5-5.0); ALKALINE PHOSPHATASE 54 U/L (38-126); ANION GAP 14 (5-19); ASPARTATE AMINO TRANSFERASE 17 U/L (14-36); BILIRUBIN,DIRECT 0.4 mg/dL (0.0-0.4); BILIRUBIN,TOTAL 2.1 mg/dL (0.2-1.3); BLOOD UREA NITROGEN 12 mg/dL (7-20); CALCIUM 10.3 mg/dL (8.4-10.2); CARBON DIOXIDE 23 mmol/L (22-30); CHLORIDE 101 mmol/L (98-107); CREATININE RESULT 0.98 mg/dL (0.52-1.25); GLUCOSE 106 mg/dL (75-110); POTASSIUM 3.6 mmol/L (3.6-5.0); SODIUM 137.9 mmol/L (137-145); TOTAL PROTEIN 7.9 g/dL (6.3-8.2)
[2017-04-16] MEDS ORDERED: NORMAL SALINE 1000 ML 1,000 ML IV ONE (21:15)
[2017-04-16 21:56] VITALS: BP 99/57
== END 2017-04-16 22:00 | disposition home or self-care (01) ==
LOC: ER 19:09
DX: N12 Tubulo-interstitial nephritis, not specified as acute or chronic (principal); R50.9 Fever, unspecified; R00.0 Tachycardia, unspecified; M79.1 Myalgia
CPT/HCPCS: 99283; 96365; 36415; 87040; 85025; 81025; 87077; 80053; 81001; 87186; J3490; J0696

== ENCOUNTER 2017-04-27 19:46 | Emergency (ER) | payer MEDICAID ==
[2017-04-27 20:30] VITALS: BP 121/80
== END 2017-04-27 22:20 | disposition left against medical advice (07) ==
LOC: ER 19:46
DX: Z53.21 Procedure and treatment not carried out due to patient leaving prior to being seen by health care provider (principal)

== ENCOUNTER 2017-04-28 08:40 | Emergency (ER) | payer SELFPAY ==
[2017-04-28 08:44] VITALS: BP 102/60
--- NOTE | 2017-04-28 09:25 | ER Document Report ---
ED GI/ - General Chief Complaint: Flank Pain Stated Complaint: RIGHT SIDE PAIN Time Seen by Provider: 04/28/17 09:14 Mode of Arrival: Ambulatory Information source: Patient TRAVEL OUTSIDE OF THE [place] IN LAST 30 DAYS: No - HPI Patient complains to provider of: Dysuria, Flank pain Timing/Duration: Gradual, Persistent Quality of pain: Achy Severity at maximum: Moderate Severity in ED: Moderate Pain Level: 3 Location: Right flank Associated symptoms: Dysuria, Urinary hesitancy, Urinary frequency Similar symptoms previously: Yes Recently seen / treated by doctor: Yes Notes: 04/28/17 09:31 Patient is a 27-year-old female presenting to the emergency room complaining of right-sided flank pain with urinary frequency and hesitancy, it has been going on for the past week, she was previously seen in this department and diagnosed with a urinary tract infection, she has been taking Cipro which has given her no relief of symptoms, she denies any fevers, no nausea, vomiting or diarrhea - Related Data Allergies/Adverse Reactions: No Known Allergies Allergy (Verified 12/02/16 06:24) Past Medical History - General Information source: Patient - Social History Smoking Status: Unknown if Ever Smoked Family History: Reviewed & Not Pertinent Renal/ Medical History: Denies: Hx Peritoneal Dialysis Review of Systems - Review of Systems Constitutional: No symptoms reported EENT: No symptoms reported Cardiovascular: No symptoms reported Respiratory: No symptoms reported Gastrointestinal: No symptoms reported Genitourinary: See HPI Female Genitourinary: No symptoms reported Musculoskeletal: No symptoms reported Skin: No symptoms reported Hematologic/Lymphatic: No symptoms reported Neurological/Psychological: No symptoms reported -: Yes All other systems reviewed and negative Physical Exam - Vital signs Vitals: Temp Pulse Resp BP Pulse Ox 98.5 F 64 15 102/60 100 04/28/17 08:41 04/28/17 08:41 04/28/17 08:41 04/28/17 08:41 04/28/17 08:41 Interpretation: Normal - General General appearance: Appears well, Alert - HEENT Head: Normocephalic, Atraumatic Eyes: Normal Pupils: PERRL - Respiratory Respiratory status: No respiratory distress - Cardiovascular Rhythm: Regular - Abdominal Inspection: Normal Distension: No distension Bowel sounds: Normal Tenderness: Tender - Suprapubic tenderness Organomegaly: No organomegaly - Back Back: Normal, Nontender - Extremities General upper extremity: Normal inspection, Nontender, Normal color, Normal ROM , Normal temperature General lower extremity: Normal inspection, Nontender, Normal color, Normal ROM , Normal temperature, Normal weight bearing. No: Letty's sign - Neurological Neuro grossly intact: Yes Cognition: Normal Orientation: AAOx4 [place] Coma Scale Eye Opening: Spontaneous [place] Coma Scale Verbal: Oriented [place] Coma Scale Motor: Obeys Commands [place] Coma Scale Total: 15 Speech: Normal Motor strength normal: LUE, RUE, LLE, RLE Sensory: Normal - Psychological Associated symptoms: Normal affect, Normal mood - Skin Skin Temperature: Warm Skin Moisture: Dry Skin Color: Normal Course - Re-evaluation Re-evalutation: 04/28/17 09:56 Patient symptoms are consistent with a worsening urinary tract infection, however urinalysis today is unremarkable, I reviewed her microbiology from previous urine culture which shows it is susceptible to Cipro, I am worried her symptoms are possibly related to something else in the right flank, therefore blood work has been ordered 04/28/17 11:04 Lab findings were discussed with patient at bedside which are unremarkable, 3 times daily, advised to drink plenty water, follow-up with her primary care provider or return if symptoms worsen, patient acknowledges understanding and agreement with this plan - Vital Signs Vital signs: Temp Pulse Resp BP Pulse Ox 98.5 F 64 15 102/60 100 04/28/17 08:41 04/28/17 08:41 04/28/17 08:41 04/28/17 08:41 04/28/17 08:41 - Laboratory Result Diagrams: 04/28/17 10:05 04/28/17 10:05 Laboratory results interpreted by me: 04/28/17 04/28/17 09:30 10:05 Calcium 10.6 H Urine Urobilinogen 2.0 H Discharge - Discharge Clinical Impression: Flank pain Condition: Stable Disposition: HOME, SELF-CARE Instructions: Flank Pain ([facility]), Anti-Inflammatory Medication ([facility]) Additional Instructions: Follow up with your primary care provider in one to 2 days. Return to the emergency room immediately if symptoms worsen or any additional concerns. Drink plenty water. Prescriptions: Ibuprofen [Motrin 400 mg Tablet] 400 mg PO TID #30 tablet Forms: Return to Work
[2017-04-28 09:49] LABS: APPEARANCE,URINE CLEAR; BILIRUBIN,URINE NEGATIVE (NEGATIVE); GLUCOSE, URINE NEGATIVE (NEGATIVE); KETONES,URINE NEGATIVE (NEGATIVE); LEUKOCYTE ESTERASE,URINE NEGATIVE (NEGATIVE); NITRITE,URINE NEGATIVE (NEGATIVE); PROTEIN,URINE NEGATIVE (NEGATIVE); URINE SPECIFIC GRAVITY 1.017
[2017-04-28 10:28] LABS: ABSOLUTE BASOPHILS # (AUTO) 0.1 10^3/uL (0.0-0.2); ABSOLUTE EOSINOPHILS # (AUTO) 0.1 10^3/uL (0.0-0.6); ABSOLUTE LYMPHOCYTES (AUTO) 2.5 10^3/uL (0.5-4.7); ABSOLUTE MONOCYTES (AUTO) 0.4 10^3/uL (0.1-1.4); BASOPHILS % (AUTO) 0.8 % (0-2); EOSINOPHILS % (AUTO) 1.1 % (0-6); HEMATOCRIT 39.4 % (36.0-47.0); HEMOGLOBIN 13.4 g/dL (12.0-15.5); HGB HCT DIFFERENCE 0.8; MEAN CORPUSCULAR HEMOGLOBIN 28.9 pg (27.0-33.4); MEAN CORPUSCULAR VOLUME 85 fl (80-97); MONOCYTES % (AUTO) 4.6 % (3-13); RED BLOOD COUNT 4.63 10^6/uL (3.72-5.28); RED CELL DISTRIBUTION WIDTH 13.3 % (11.5-14.0); SEGMENTED NEUTROPHILS % (AUTO) 62.5 % (42-78); WHITE BLOOD COUNT 8.1 10^3/uL (4.0-10.5)
[2017-04-28 10:54] LABS: ALANINE AMINOTRANSFERASE 41 U/L (9-52); ALBUMIN 4.7 g/dL (3.5-5.0); ALKALINE PHOSPHATASE 52 U/L (38-126); ANION GAP 10 (5-19); ASPARTATE AMINO TRANSFERASE 24 U/L (14-36); BILIRUBIN,DIRECT 0.4 mg/dL (0.0-0.4); BILIRUBIN,TOTAL 0.8 mg/dL (0.2-1.3); BLOOD UREA NITROGEN 17 mg/dL (7-20); CALCIUM 10.6 mg/dL (8.4-10.2); CARBON DIOXIDE 28 mmol/L (22-30); CHLORIDE 104 mmol/L (98-107); CREATININE RESULT 0.95 mg/dL (0.52-1.25); GLUCOSE 88 mg/dL (75-110); LIPASE 98.4 U/L (23-300); SODIUM 142.3 mmol/L (137-145); TOTAL PROTEIN 7.9 g/dL (6.3-8.2)
== END 2017-04-28 11:07 | disposition home or self-care (01) ==
LOC: ER 08:40
DX: R10.9 Unspecified abdominal pain (principal); R30.0 Dysuria; R39.11 Hesitancy of micturition; R35.0 Frequency of micturition
CPT/HCPCS: 36415; 80053; 81001; 81025; 83690; 85025; 87086; 99284

== ENCOUNTER 2017-09-08 16:20 | Emergency (ER) | payer SELFPAY ==
--- NOTE | 2017-09-08 18:15 | ER Document Report ---
HPI - HPI Pain Level: 2 Notes: Patient is a 27-year-old female no significant past medical history who presents the ED complaining of having a few episodes of nausea/vomiting with abdominal cramping yesterday. Pt also had a POTTER yesterday that has since resolved. Patient states that she has not had any vomiting today. Patient has not been taking any medications for symptoms. She is eating and drinking without difficulties today, but does have a decreased p.o. intake. Patient states that she does have intermittent nausea otherwise. She is urinating normally and having normal bowel movements. Patient states that there is an illness going around the house and she believes that her kids got her sick. She denies any drug allergies. Patient admits to smoking but denies IV drug use. Denies any current headache, fever, head injury, neck pain, changes in vision/speech/mentation/hearing, URI, sore throat, chest pain, palpitations, syncope, cough, shortness of breath, wheeze, dyspnea, diarrhea, urinary retention, dysuria, hematuria, back pain, vaginal discharge/odor/bleeding, loss of control of bowel or bladder, numbness/tingling, saddle anesthesia, muscle paralysis/weakness, or rash. LMP >1mo ago. Pt declines . Pt also requesting a work note. - ROS Systems Reviewed and Negative: Yes All other systems reviewed and negative - REPRODUCTIVE Reproductive: REPORTS: : Past Medical History - Social History Smoking Status: Current Every Day Smoker Family History: Reviewed & Not Pertinent Renal/ Medical History: Denies: Hx Peritoneal Dialysis Vertical Provider Document - CONSTITUTIONAL Agree With Documented VS: Yes Notes: PHYSICAL EXAMINATION: GENERAL: Well-appearing, well-nourished and in no acute distress. A&Ox4. Answers questions appropriately. Moves comfortably w/o notable distress HEAD: Atraumatic, normocephalic. EYES: Pupils equal round and reactive to light, extraocular movements intact, sclera anicteric, conjunctiva are normal. ENT: EAC clear b/l. TM's intact b/l without erythema, fluid, or perforation. Nares patent and with clear discharge. oropharynx no erythema without exudates. No tonsilar hypertrophy without erythema or exudate. No palatine shift. Uvula midline. No tongue protrusion. No drooling, hoarseness, or airway compromise. Moist mucous membranes. No sinus tenderness. NECK: Normal range of motion, supple without lymphadenopathy. No rigidity/ meningismus. LUNGS: Breath sounds clear to auscultation bilaterally and equal. No wheezes rales or rhonchi. No retractions HEART: Regular rate and rhythm without murmurs, rubs, gallops. ABDOMEN: Soft, nondistended abdomen. No guarding, no rebound. No masses appreciated. Normal bowel sounds present. No CVA tenderness bilaterally. No hepatosplenomegaly. Knott neg. + mild tenderness to the epigastrum. McBurney negative. Psoas/obturator neg. + tenderness rt lower pelvic area. Pt ambulatory w/o worsening pain. Heel strike neg. : pt declined pelvic. NEUROLOGICAL: Normal speech, normal gait. Normal sensory, motor exams PSYCH: Normal mood, normal affect. SKIN: Warm, Dry, normal turgor, no rashes or lesions noted. - INFECTION CONTROL TRAVEL OUTSIDE OF THE [place] IN LAST 30 DAYS: No - RESPIRATORY O2 Sat by Pulse Oximetry: 99 Course - Re-evaluation Re-evalutation: 09/08/17 19:19 Patient is an afebrile, well-hydrated, 27-year-old female who presents to the ED based on Urine hcg today. Vitals are stable. See Urine results. Abdomen was soft and only had mild tenderness in the epigastrium and rt pelvic area. Patient is moving around the room in no apparent distress. Patient had no tenderness at McBurney point and Knott was negative. Patient is tolerating p.o. without any difficulties. After discussion with patient about her , I thoroughly reviewed that I would like to get blood work and an ultrasound because of her complaints today to further evaluate. Patient states that she cannot stay here that long and wants to leave. Patient understands that if she leaves and she does have an ectopic that it could rupture and she could . Other issues include ovarian torsion and pelvic inflammatory disease with a . Patient understands these risks and would still like to sign out AMA. This conversation was witnessed by our RN. I thoroughly reviewed strict return precautions with patient. Patient is to monitor symptoms closely and return to the ED with worsening symptoms. I will send her home with a prescription for Zofran. Conservative measures otherwise for symptoms. Return to the ED with any worsening/concerning symptoms otherwise as reviewed in discharge. Patient is in agreement. - Vital Signs Vital signs: Temp Pulse Resp BP Pulse Ox 98.9 F 86 16 106/60 99 09/08/17 16:45 09/08/17 16:45 09/08/17 16:45 09/08/17 16:45 09/08/17 16:45 Discharge - Discharge Clinical Impression: Nausea and vomiting Qualifiers: Vomiting type: unspecified Vomiting Intractability: non-intractable Qualified Code(s): R11.2 - Nausea with vomiting, unspecified Qualifiers: Weeks of gestation: unspecified Qualified Code(s): Z34.90 - Encounter for supervision of normal , unspecified, unspecified trimester Condition: Stable Disposition: AGAINST MEDICAL ADVICE Instructions: Abdominal Pain ([facility]), Antinausea Medication ([facility]), Observation for Appendicitis ([facility]), Vomiting ([facility]), ([facility]) Additional Instructions: Maintain adequate fluid and food intake [place] diet ([employer] Bananas, rice, apples, toast, etc Zofran as needed tylenol if needed Monitor for any worsening symptoms closely* Make sure you are staying hydrated enough to urinate and have normal BM's Recheck with your PCM in 2-3 days OBGYN recheck 2-3 days if able* Return to the ED with any worsening symptoms and/or development of fever, headache, chest pain, palpitations, syncope, shortness of breath, trouble breathing, abdominal pain, n/v/d, blood in stool/urine, weakness, worsening pelvic pain, vaginal bleeding/odor/discharge, or other worsening symptoms that are concerning to you. Prescriptions: Ondansetron [Zofran Odt 4 mg Tablet] 1 - 2 tab PO Q4H PRN #15 tab.rapdis PRN Reason: For Nausea/Vomiting Referrals: EVA SEALS MD [MARTHA REDD] - Follow up as needed [facility] [Provider Group] - 09/10/17
[2017-09-08 19:12] LABS: APPEARANCE,URINE CLOUDY; BILIRUBIN,URINE NEGATIVE (NEGATIVE); GLUCOSE, URINE NEGATIVE (NEGATIVE); KETONES,URINE NEGATIVE (NEGATIVE); LEUKOCYTE ESTERASE,URINE NEGATIVE (NEGATIVE); NITRITE,URINE POSITIVE (NEGATIVE); PROTEIN,URINE 30 mg/dL (NEGATIVE); URINE SPECIFIC GRAVITY 1.027; UROBILINOGEN,URINE NEGATIVE mg/dL (<2.0)
[2017-09-08 19:14] LABS: COLOR,URINE DARK YELLOW
[2017-09-08 19:52] VITALS: BP 102/53
== END 2017-09-08 19:50 | disposition left against medical advice (07) ==
LOC: ER 16:20
DX: Z34.90 Encounter for supervision of normal pregnancy, unspecified, unspecified trimester (principal); R11.2 Nausea with vomiting, unspecified; R10.9 Unspecified abdominal pain; R51 Headache; F17.200 Nicotine dependence, unspecified, uncomplicated; Z3A.00 Weeks of gestation of pregnancy not specified
CPT/HCPCS: 81001; 81025; 99284

== ENCOUNTER 2017-09-10 23:29 | Observation (INO) | payer SELFPAY ==
[2017-09-11 01:04] LABS: BILIRUBIN,URINE NEGATIVE (NEGATIVE); COLOR,URINE YELLOW; GLUCOSE, URINE NEGATIVE (NEGATIVE); KETONES,URINE NEGATIVE (NEGATIVE); LEUKOCYTE ESTERASE,URINE NEGATIVE (NEGATIVE); NITRITE,URINE NEGATIVE (NEGATIVE); PROTEIN,URINE NEGATIVE (NEGATIVE); URINE SPECIFIC GRAVITY 1.024
[2017-09-11 01:06] LABS: APPEARANCE,URINE CLEAR
[2017-09-11 01:53] LABS: ALANINE AMINOTRANSFERASE 25 U/L (9-52); ALBUMIN 4.4 g/dL (3.5-5.0); ALKALINE PHOSPHATASE 44 U/L (38-126); ANION GAP 12 (5-19); ASPARTATE AMINO TRANSFERASE 19 U/L (14-36); BILIRUBIN,DIRECT 0.1 mg/dL (0.0-0.4); BILIRUBIN,TOTAL 0.5 mg/dL (0.2-1.3); BLOOD UREA NITROGEN 16 mg/dL (7-20); CALCIUM 10.3 mg/dL (8.4-10.2); CARBON DIOXIDE 25 mmol/L (22-30); CHLORIDE 104 mmol/L (98-107); GLUCOSE 73 mg/dL (75-110); POTASSIUM 4.4 mmol/L (3.6-5.0); SODIUM 141.3 mmol/L (137-145)
[2017-09-11 01:54] LABS: ABSOLUTE EOSINOPHILS # (AUTO) 0.2 10^3/uL (0.0-0.6); ABSOLUTE LYMPHOCYTES (AUTO) 2.6 10^3/uL (0.5-4.7); ABSOLUTE MONOCYTES (AUTO) 0.7 10^3/uL (0.1-1.4); ABSOLUTE NEUT (AUTO) 4.3 10^3/uL (1.7-8.2); BASOPHILS % (AUTO) 0.4 % (0-2); EOSINOPHILS % (AUTO) 2.9 % (0-6); HEMATOCRIT 37.1 % (36.0-47.0); HEMOGLOBIN 12.4 g/dL (12.0-15.5); LYMPHOCYTES % (AUTO) 33.2 % (13-45); MEAN CORPUSCULAR HEMOGLOBIN 28.6 pg (27.0-33.4); MEAN CORPUSCULAR HGB CONC 33.6 g/dL (32.0-36.0); MEAN CORPUSCULAR VOLUME 85 fl (80-97); MONOCYTES % (AUTO) 8.8 % (3-13); PLATELET COUNT 252 10^3/uL (150-450); RED BLOOD COUNT 4.35 10^6/uL (3.72-5.28); RED CELL DISTRIBUTION WIDTH 13.6 % (11.5-14.0); SEGMENTED NEUTROPHILS % (AUTO) 54.7 % (42-78); TOTAL CELLS COUNTED % (AUTO) 100 %; WHITE BLOOD COUNT 7.8 10^3/uL (4.0-10.5)
--- NOTE | 2017-09-11 02:42 | ER Document Report ---
ED General - General Chief Complaint: Abdominal Pain Stated Complaint: ABDOMINAL PAIN Time Seen by Provider: 09/11/17 01:39 Notes: Patient is a 27-year-old female at unknown gestational age, last menstrual period 07/23/2017 who presents with 2 days of intermittent right lower abdominal pain as well as nausea and vomiting. Patient describes the pain as an intermittent, aching pain. Nothing improves or worsens the pain. She denies a history of similar symptoms during her prior pregnancies. She denies any vaginal bleeding or discharge. 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 She denies any prior history of PID, ectopic , but does smoke. She denies any pain at time of my assessment. TRAVEL OUTSIDE OF THE [place] IN LAST 30 DAYS: No - Related Data Allergies/Adverse Reactions: No Known Allergies Allergy (Verified 09/11/17 01:44) Past Medical History - General Information source: Patient - Social History Smoking Status: Current Every Day Smoker Chew tobacco use (# tins/day): No Frequency of alcohol use: None Drug Abuse: None Lives with: Spouse/Significant other Family History: Reviewed & Not Pertinent Patient has suicidal ideation: No Patient has homicidal ideation: No Renal/ Medical History: Denies: Hx Peritoneal Dialysis Review of Systems - Review of Systems Notes: Constitutional: Negative for fever. HENT: Negative for sore throat. Eyes: Negative for visual changes. Cardiovascular: Negative for chest pain. Respiratory: Negative for shortness of breath. Gastrointestinal: Positive for lower abdominal pain Genitourinary: Negative for dysuria. Musculoskeletal: Negative for back pain. Skin: Negative for rash. Neurological: Negative for headaches, weakness or numbness. 10 point ROS negative except as marked above and in HPI. Physical Exam - Vital signs Vitals: Temp Pulse Resp BP Pulse Ox 98.7 F 79 16 107/65 99 09/10/17 23:42 09/10/17 23:42 09/10/17 23:42 09/10/17 23:42 09/10/17 23:42 Interpretation: Normal Notes: PHYSICAL EXAMINATION: GENERAL: Well-appearing, well-nourished and in no acute distress. HEAD: Atraumatic, normocephalic. EYES: Pupils equal round and reactive to light, extraocular movements intact, sclera anicteric, conjunctiva are normal. ENT: nares patent, oropharynx clear without exudates. Moist mucous membranes. NECK: Normal range of motion, supple without lymphadenopathy LUNGS: Breath sounds clear to auscultation bilaterally and equal. No wheezes rales or rhonchi. HEART: Regular rate and rhythm without murmurs ABDOMEN: Soft, nontender, normoactive bowel sounds. No guarding, no rebound. No masses appreciated. EXTREMITIES: Normal range of motion, no pitting or edema. No cyanosis. NEUROLOGICAL: No focal neurological deficits. Moves all extremities spontaneously and on command. PSYCH: Normal mood, normal affect. SKIN: Warm, Dry, normal turgor, no rashes or lesions noted. Course - Re-evaluation Re-evalutation: 09/11/17 02:41 Patient is currently and presenting with lower abdominal pain. No vaginal bleeding or discharge. Transvaginal ultrasound does not identify an intrauterine which is extremely concerning the context of focal right adnexal and lower quadrant abdominal pain with a quantitative hCG of 44,000. At this point we should definitively see an intrauterine . At this point I am extremely concerned for ectopic . I have contacted the OB/ PIPELINE SYSTEMS OPERATOR on-call Dr. Posadas. She shares my concern for an ectopic . She will come to assess the patient and admit for surgical management. I have informed the patient and her at the bedside of these findings as well as plan of care. She remains hemodynamically stable and in no acute distress. She is n.p.o. - Vital Signs Vital signs: Temp Pulse Resp BP Pulse Ox 98.5 F 55 L 16 96/57 L 99 09/11/17 04:17 09/11/17 04:17 09/11/17 04:17 09/11/17 04:17 09/11/17 04:17 - Laboratory Result Diagrams: 09/11/17 00:58 09/11/17 00:58 Laboratory results interpreted by me: 09/11/17 09/11/17 00:47 00:58 Glucose 73 L Calcium 10.3 H Beta HCG, Quant 34806.00 H Urine Urobilinogen 4.0 H - Diagnostic Test Radiology reviewed: Reports reviewed Discharge - Discharge Clinical Impression: Ectopic Qualifiers: Location of ectopic : unspecified location Intrauterine status: without intrauterine Qualified Code(s): O00.90 - Unspecified ectopic without intrauterine Condition: Fair Disposition: ADMITTED INPATIENT Admitting Provider: [facility] Unit Admitted: Post
--- NOTE | 2017-09-11 03:26 | RADIOLOGY REPORT (SQ) ---
EXAM DESCRIPTION: U/S OB TRANSVAGINAL W/O DOP CLINICAL HISTORY: 27 years, Female, ab pain, preg COMPARISON: None. TECHNIQUE: Transvaginal. LIMITATIONS: None. FINDINGS: No living intrauterine fetus identified. There is a likely intrauterine gestational sac with decidual reaction. No yolk sac. No pole. No cardiac activity. If viable, mean sac diameter of 1.8 cm would correspond with a gestational age of six weeks and five days. 2.5 cm right ovary and 3.6 and regular left ovary are unremarkable. IMPRESSION: No living intrauterine fetus is identified at this time. There is a likely intrauterine gestational sac. Differential diagnosis includes early viable gestation, ongoing gestational loss, and or occult ectopic gestation. Consider 48 to 72 hours laboratory/sonographic surveillance.
[2017-09-11] MEDS ORDERED: ONDANSETRON HCL INJ/PF 4 MG/2 ML SDV IV ONE (05:16)
[2017-09-11] MEDS ORDERED: RINGERS SOLUTION,LACTATED 1,000 ML IV PRN (05:53)
[2017-09-11] MEDS ORDERED: RINGERS SOLUTION,LACTATED 500 ML IV PRN (05:53)
[2017-09-11] MEDS ORDERED: ONDANSETRON HCL INJ/PF 4 MG/2 ML SDV IV PRN (05:54)
[2017-09-11] MEDS ORDERED: MORPHINE SULFATE 10 MG/ML INJ IV PRN (05:54)
--- NOTE | 2017-09-11 07:06 | PDOC H&P ---
History of Present Illness Admission Date/PCP: 09/11/17 04:55 History of Present Illness: JOSSELNI PRETTY is a 27 year old female ( x 5, h/o IOL at 35wks for IUGR) presents for RLQ pain and recently found out she was . LMP 2016 which would make her 7+0ega. She is a smoker 3cig/day. She reports that she was here on 09/08 in the ER because she and all her kids were sick (URI and Stomach bug). She was told that she may have an ectopic on 09/08 (no US and No BHCG done) but she left AMA - because she had all 6 kids with her. She reports that she noted today increase in RLQ pain with vomiting. She reports the pain is 4/10 and is intermittent. She reports that she has continued to be nauseated. Past Medical History LMP: 07/23/2017 Gynecological Infection: No 1 Delivery: Spontaneous Vaginal Delivery 2 Delivery: Spontaneous Vaginal Delivery 3 Delivery: Spontaneous Vaginal Delivery 4 Delivery: Spontaneous Vaginal Delivery 5 Delivery: Spontaneous Vaginal Delivery Past Surgical History Past Surgical History: Reports: None Social History Information Source: Patient Lives with: Family, Spouse/Significant other Smoking Status: Current Every Day Smoker Frequency of Alcohol Use: None Hx Recreational Drug Use: No Drugs: None Hx Prescription Drug Abuse: No Family History Family History: Reviewed & Not Pertinent Parental Family History Reviewed: No Children Family History Reviewed: NA Sibling(s) Family History Reviewed.: NA Medication/Allergy Home Medications: No Home Medications 09/11/17 Allergies/Adverse Reactions: No Known Allergies Allergy (Verified 09/11/17 01:44) Review of Systems Constitutional: ABSENT: chills, fever(s), headache(s), weight gain, weight loss Cardiovascular: ABSENT: chest pain, dyspnea on exertion, edema, orthropnea, palpitations Respiratory: ABSENT: cough, hemoptysis Gastrointestinal: PRESENT: abdominal pain, nausea, vomiting. ABSENT: heartburn , melena Genitourinary: ABSENT: dysuria, hematuria Integumentary: ABSENT: rash, wounds Neurological: ABSENT: abnormal gait, abnormal speech, confusion, dizziness, focal weakness, syncope Psychiatric: ABSENT: anxiety, depression, homidical ideation, suicidal ideation Endocrine: ABSENT: cold intolerance, heat intolerance, polydipsia, polyuria Hematologic/Lymphatic: ABSENT: easy bleeding, easy bruising Physical Exam - Physical Exam Vital Signs: Temp Pulse Resp BP Pulse Ox 98.5 F 55 L 16 96/57 L 99 09/11/17 04:17 09/11/17 04:17 09/11/17 04:17 09/11/17 04:17 09/11/17 04:17 General appearance: PRESENT: no acute distress, well-developed, well-nourished Respiratory exam: PRESENT: clear to auscultation vitaliy, symmetrical, unlabored Cardiovascular exam: PRESENT: RRR. ABSENT: diastolic murmur, rubs, systolic murmur Pulses: PRESENT: normal dorsalis pedis pul, +2 pedal pulses bilateral Vascular exam: PRESENT: normal capillary refill GI/Abdominal exam: PRESENT: normal bowel sounds, soft, tenderness - RLQ ttp. ABSENT: distended, guarding, mass, organolmegaly, rebound, rigid Rectal exam: PRESENT: deferred Extremities exam: PRESENT: full ROM. ABSENT: calf tenderness, clubbing, pedal edema Musculoskeletal exam: PRESENT: ambulatory, full ROM Neurological exam: PRESENT: alert, awake, oriented to person, oriented to place , oriented to time, oriented to situation, CN II-XII grossly intact. ABSENT: motor sensory deficit Psychiatric exam: PRESENT: appropriate affect, normal mood. ABSENT: homicidal ideation, suicidal ideation Skin exam: PRESENT: dry, intact, warm. ABSENT: cyanosis, rash Result Impressions: Obstetrics Ultrasound 09/11/17 01:40 IMPRESSION: No living intrauterine fetus is identified at this time. There is a likely intrauterine gestational sac. Differential diagnosis includes early viable gestation, ongoing gestational loss, and or occult ectopic gestation. Consider 48 to 72 hours laboratory/sonographic surveillance. Status: Image reviewed by me Assessment & Plan - Diagnosis (1) Qualifiers: Weeks of gestation: less than 8 weeks Qualified Code(s): Z3A.01 - Less than 8 weeks gestation of Is this a current diagnosis for this admission?: Yes Plan: at 7+0ega by LMP. US with irreg appearing gestational sac in the uterus that is c/w 6+5ega. Suspect based on the appearance of the gestational sac and the [facility] that it is likely a Blighted ovum. However, patient with adominal pain and can not completely rule out ectopic . Pt has had intermittent emesis for 2 days - possible that abdominal pain could be related to repetitive vomiting and dry heaving. Reviewed viable vs. blighted ovum vs ectopic vs heterotopic . US appearance c/w poss blighted ovum but gestational sac measurement is only 2 days different from her LMP ega. Reviewed D&C and L/S procedures if needed based on re-evaluation of patient. Pt is a smoker which is a risk factor for ectopic . No type and screen done - ER provider will order. No GC/CT done - ordered for arrival on floor. Pain rx and antiemetics given. Will admit for observation and rescan and repeat labs this pm or in am. If acutely worsens will go to the OR urgently. However, patient is currently hemodynamically stable and no need for emergent intervention. (2) with inconclusive viability Qualifiers: Fetus number: single or unspecified fetus Qualified Code(s): O36.80X0 - with inconclusive viability, not applicable or unspecified Is this a current diagnosis for this admission?: Yes Plan: see above. US with no pole and poss blighted ovum but only 2days different ega on US gestational sac vs ega from known LMP. Could be early viable IUP based on gestational sac measurements. Sac is irregular in appearance however. WIll monitor with US and labs prn. (3) Nausea and vomiting Qualifiers: Vomiting type: unspecified Vomiting Intractability: non-intractable Qualified Code(s): R11.2 - Nausea with vomiting, unspecified Is this a current diagnosis for this admission?: Yes Plan: Antiemetics IVF suppportive care - Time Time Spent: 30 to 50 Minutes Critical Time spent with patient: Less than 15 minutes Smoking Cessation Education: 3 to 10 minutes Medications reviewed and adjusted accordingly: Yes Anticipated discharge: Home Within: within 24 hours - Inpatient Certification Based on my medical assessment, after consideration of the patient's comorbidities, presenting symptoms, or acuity I expect that the services needed warrant INPATIENT care.: Yes I certify that my determination is in accordance with my understanding of Medicare's requirements for reasonable and necessary INPATIENT services [42 CFR 412.3e].: Yes Medical Necessity: Need Close Monitoring Due to Risk of Patient Decompensation, Need for Pain Control, Risk of Complication if Not Cared For in Hospital - Plan Summary Plan Summary: monitor, poss need for surgery.
[2017-09-11] MEDS ORDERED: INFLUENZA ADLT QUAD (36MOS+) 2017-18 VAC 0.5 ML SYR IM PRN (09:35)
[2017-09-11 14:00] LABS: CHLAM PCR NOT DETECTED (NOT DETECT); GON PCR NOT DETECTED (NOT DETECT)
--- NOTE | 2017-09-11 15:50 | PDOC DISCHARGE SUMMARY ---
General - Admit/Disc Date/PCP Admission Date/Primary Care Provider: 09/11/17 04:55 Discharge Date: 09/11/17 - Discharge Diagnosis (1) with inconclusive viability Is this a current diagnosis for this admission?: Yes (2) Nausea and vomiting Is this a current diagnosis for this admission?: Yes (3) Is this a current diagnosis for this admission?: Yes - Additional Information Resuscitation Status: Full Code Home Medications: No Home Medications 09/11/17 History of Present Illness History of Present Illness: JOSSELIN PRETTY is a 27 year old female Hospital Course Hospital Course: patient admitted for IV fluids and antiemetics due to nausea and vomiting and right lower quandrant pain. has responded well to management and is now tolerating regular diet. Feeling much better. Physical Exam - Physical Exam Vital Signs: Temp Pulse Resp BP Pulse Ox 98.1 F 62 15 100/50 L 100 09/11/17 11:51 09/11/17 11:51 09/11/17 11:51 09/11/17 11:51 09/11/17 11:51 Intake & Output 09/10/17 09/11/17 09/12/17 06:59 06:59 06:59 Intake Total 300 Balance 300 General appearance: PRESENT: no acute distress, cooperative GI/Abdominal exam: PRESENT: soft - nontender Result Laboratory Results: 09/11/17 05:23 Blood Type A POSITIVE Antibody Screen NEGATIVE Impressions: Obstetrics Ultrasound 09/11/17 01:40 IMPRESSION: No living intrauterine fetus is identified at this time. There is a likely intrauterine gestational sac. Differential diagnosis includes early viable gestation, ongoing gestational loss, and or occult ectopic gestation. Consider 48 to 72 hours laboratory/sonographic surveillance. Status: Image reviewed by me Plan Discharge Plan: d/w patient with RN present regarding inconclusive viability. Explained that likelihood of a heterotopic is very rare. Explained that viability is not determinable at this time and that I recommend a repeat sono in 1 week to ascertain future management of . Voiced understanding. Bleeding precautions given Time Spent: Less than 30 Minutes
[2017-09-11 16:11] VITALS: BP 96/52
== END 2017-09-11 16:30 | disposition home or self-care (01) ==
LOC: ER 23:29 → INTOOBSV 09-11 04:55 → EH 09-11 04:55 → 2S 09-11 05:55
PROVIDERS: ADMIT Student in an Organized Health Care Education/Training Program; ATTEND Student in an Organized Health Care Education/Training Program
DX: O36.80X0 Pregnancy with inconclusive fetal viability, not applicable or unspecified (principal); O26.891 Other specified pregnancy related conditions, first trimester; R11.2 Nausea with vomiting, unspecified; R10.31 Right lower quadrant pain; O99.331 Smoking (tobacco) complicating pregnancy, first trimester; F17.210 Nicotine dependence, cigarettes, uncomplicated; Z3A.01 Less than 8 weeks gestation of pregnancy
CPT/HCPCS: 99285; 86900; 86901; 36415; 86850; 84702; 85025; 80053; 81001; 87491; 87591; 76817; G0378 ×2; J2405; J7120 ×2